=== PATIENT | male | born 1980 | race Two or more races ===

== ENCOUNTER 2022-10-31 10:36 | Outpatient (CLI) | payer OTHER ==
[2022-10-31 11:39] VITALS: BP 126/72
--- NOTE | 2022-10-31 11:39 | SLEEP CARE CONSULTATION ---
Information from patient questionnaire entered by Yuliet Novak. I have reviewed and concur with the information entered by Yuliet Novak. This document represents the service I personally performed and the decisions made by me, Toya Goldman ARNP. History of Present Illness Service Date and Time: 10/31/2022 1036 Reason for Visit: New patient, sleep apnea on CPAP therapy Chief Complaint: reports: Unrefreshed sleep, Snoring, Excessive daytime sleepiness, Observed pauses in breathing, Fatigue, Frequent awakenings at night, Other (UPDATE SUPPLIES ) Date of Onset: 10YRS Usual bedtime: TBD Time it takes to fall asleep: 5MIN Snores at night: Yes Observed to quit breathing while asleep: Yes Sleeps alone due to snoring: No Number of times waking at night: 0+ Reasons for waking at night: reports: Pain, Bathroom, Other (NOISE AND UNKNOWN REASONS) Toss, Turn, or Twitch while sleeping: Yes Recalls having dreams: Yes Usually gets out of bed at: TBD Feels refreshed in the morning: No Morning headache: No Sleepy or fatigued during the day: Yes Ever fallen asleep while driving: No Takes day naps: No Dreams during day naps: No Prior sleep studies: Yes Year and Where: 02/2020 [facility] Additional HPI information: LUI XIAO was previously diagnosed to have moderate, AHI 20.2, obstructive sleep apnea-hypopnea syndrome in 2019 by [facility] and comes in today to establish care for CPAP therapy. - Parasomnia Symptoms Ever been unable to move upon waking from sleep: No Walks in sleep: No Talks in sleep: No Ever acted out dreams in sleep: No Ever felt weak in the knees when startled or emotional: No Bothered by creepy, crawly, restless sensations in legs: No Problems with memory or concentration: No CPAP Compliance Data - Data Reviewed with Patient Average duration of nightly device use: 2 hours 15 minutes Compliance rate %: 1 (43/90 days used) Current pressure setting (cmH2O): 5-20 (median 5.3, avg 6.6, max 7.3) Average residual AHI: 2.4 Central apnea: 1.8 Obstructive apnea: 0.4 Average large leak: 2.0 lpm Compliance data discussion: He has a ResMed Airsense 10 that he got in 2019. He has been using a nasal cushion, Dreamwear but he cannot sleep comfortably with this mask. He has to sleep with head cocked to one side and this strains his neck. 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 He has difficulty taking and using his CPAP during these trips. He tried a nasal cushion that went over his nose with the hose in the front that someone let him have. He would like to change to this because it was much more comfortable, but the pressure seems a lot lower with this mask. He states when he turned the pressure on he could not get enough pressure in mask, feels like it is too low. This has also affected his CPAP use. He has been getting his supplies from [facility] and changes his supplies regularly. Subjective Missed days of use due to: reports: mask issues, travel (deployments) Patient concerns: reports: mask discomfort, dry mouth, nose, throat (occasion ally). denies: aerophagia, air blowing in eyes, mask leak noise, condensation in mask/hose, nasal congestion, epistaxis Observed to snore while using device: No Current pressure setting perceived as: comfortable On therapy, patient: reports: sleeping better, awakening more refreshed, being more awake and alert during the day, more rested overall. denies: drowsiness while driving Initial [place] Sleepiness Scale score: 14 (10/31/22) Past Medical History Past Medical History: reports: Other (IBS; migraines, allergies) Social History The patient's occupation is a AM. Patient is and lives in . Have you smoked in the past 12 months: No Alcohol use: Yes Alcohol amount and frequency: 1-2 MAYBE ON WEEKNDS Caffeine use: Yes Caffeine amount and frequency: 1 CU DAILY Family History Family history of sleep disordered breathing: No Allergies and Home Medications Known drug allergies: No Drug allergies reviewed: Yes (NKDA) Home medication list reviewed: Yes Allergy and home medication list: Medications: Immodium Lexapro Isa, prn Flonase, prn Sumatriptan Review of Systems Cardiovascular: denies: high blood pressure Gastrointestinal: reports: diarrhea, abdominal pain, other (IBS). denies: heartburn Neurological: reports: headaches Psychiatric: reports: anxiety, depression Ear/Nose/Throat: reports: nasal congestion, sinus problems, dry mouth/throat, hoarseness, injury to nose, wisdom teeth removed Endocrine: reports: sluggishness Musculoskeletal: reports: back pain Immunologic: reports: sneezing, itching, allergies to food or environment Physical Exam Vital signs obtained and entered by: YULIET Garvin MA Blood Pressure: 126/72 (LEFT ARM) Cuff size: regular Heart Rate: 76 O2 Saturation: 98 Height: 5 ft 11 in Weight: 181 lb (with clothes/boots) Body Mass Index: 25.2 BMI Classification: Overweight Neck circumference: 15.25 Heart: regular rate and rhythm Lungs: clear bilaterally Impression and Plan 1. Obstructive Sleep Apnea-Hypopnea Syndrome, moderate, with poor treatment compliance and good apnea control. On CPAP therapy, the patient has better sleep quality and is more rested overall. He feels even if he only gets 2 hours with his mask, he can feel an improvement in his sleep. His compliance has been affected by multiple deployments/moves/travel for work as well as mask issues. The Dreamwear nasal cushion he's had has tubing on the sides of his face and he has to sleep with his head cocked up to one side. This causes neck discomfort and will wake him up. He usually will not replace mask so he can sleep normally on his sides. He had a friend give him a nasal mask that goes over his nose and he liked it a lot better because the tubing came out the front. But, when he tried to use it, the pressure seemed way too low at the onset of turning the machine on. He is hoping to have the pressure increased. He really wants to use his CPAP and has been trying to coordinate this for a long time. I reviewed his therapy report and I will adjust his pressure. The patients pressure will be changed to autoCPAP 6.6-10 cmH20 to reduce air hunger. I also increased ramp starting pressure from 4 to 6 cmH2O to further increase patient comfort. Patient advised to contact me if pressure change is uncomfortable so that it can be adjusted. I will have him follow up in about 3 months to recheck compliance and see how the mask change is doing. A prescription to update supplies and also mask refitting for nasal mask he wants to try was completed and will be sent to his DME supplier. Patient's apnea severity and rationale for treatment to reduce apnea, improve sleep quality and reduce cardiovascular and cerebrovascular events was reviewed. I also reviewed the benefit of consistent device use of CPAP for migraines. * Mask refitting for nasal mask * Change auto CPAP pressure to 6.6-10 cmH2O * Update supplies * Notify me if snoring with mask or feeling that the pressure is too much or too little * Attempt to lose weight * Call this office if any problems using CPAP * Return for follow up in 3 months, or sooner if concerns arise Counseling Topics: Spare mask Visit Type: In Office Time Spent with Patient (minutes): 35 Provider Statement: I spent 100% of the Face to Face Visit with the patient with greater than 50% spent counseling the patient and coordination of care.
== END 2022-10-31 10:37 | disposition home or self-care (01) ==
LOC: SC 10:36
PROVIDERS: ATTEND Nurse Practitioner Family
DX: G47.33 Obstructive sleep apnea (adult) (pediatric) (principal); E66.3 Overweight; Z68.25 Body mass index [BMI] 25.0-25.9, adult
CPT/HCPCS: 99203; 99212